=== PATIENT | female | born 1960 | race Caucasian/White ===

== ENCOUNTER 2017-10-04 21:00 | Emergency (ER) | payer OTHER ==
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
[2017-10-04 21:35] VITALS: BP 133/94
== END 2017-10-04 21:31 | disposition home or self-care (01) ==
DX: L29.9 Pruritus, unspecified (principal); W57.XXXA Bitten or stung by nonvenomous insect and other nonvenomous arthropods, initial encounter; Y99.8 Other external cause status

== ENCOUNTER 2018-05-05 13:29 | Emergency (ER) | payer OTHER, MEDICAID ==
[2018-05-05 13:37] VITALS: BP 118/64
--- NOTE | 2018-05-05 13:49 | EDPHY ---
H & P Stated Complaint: bilateral hip pain Time Seen by Provider: 05/05/18 13:49 - Personal History Current Tetanus/Diphtheria Vaccine: Unsure Current Tetanus Diphtheria and Acellular Pertussis (TDAP): Unsure - Medical/Surgical History Hx Asthma: No Hx Chronic Respiratory Disease: No Hx Diabetes: No Hx Cardiac Disease: No Hx Renal Disease: No Hx Cirrhosis: No Hx Alcoholism: No Hx HIV/AIDS: No Hx Splenectomy or Spleen Trauma: No Other PMH: PMH: fibromyalgia, many ortho issues, chronic pain. - Social History Smoking Status: Light smoker Constitutional: Initial Vital Signs Temperature (C) 36.5 C 05/05/18 13:30 Heart Rate 78 05/05/18 13:30 Respiratory Rate 18 05/05/18 13:30 Blood Pressure 118/64 05/05/18 13:30 O2 Sat (%) 96 05/05/18 13:30 O2 Delivery Mode Room Air Allergies/Adverse Reactions: morphine Allergy (Verified 10/04/17 21:09) peach Allergy (Verified 10/04/17 21:09) Home Medications: Medication Instructions Recorded Gabapentin 05/05/18 Medical Decision Making - Diagnostics Imaging: I viewed and interpreted images myself ED Course/Re-evaluation: CHIEF COMPLAINT: Right hip pain HISTORY OF PRESENT ILLNESS: The patient is a 58 y/o female with a history of chronic pain and bilateral hip replacements complaining of right hip and groin pain that began while walking today. She has been told her right hip was "wearing out." She is unable to give me a clear answer if she is able to walk or not, but she has been able to commute by bus and apparently walk into the ED. No weakness, paresthesias, urinary symptoms, recent trauma, or other complaints. REVIEW OF SYSTEMS: A comprehensive 10 system review of systems is otherwise negative aside from elements mentioned in the history of present illness and medical decision making. PHYSICAL EXAM: HR, BP, O2 Sat, RR. Temp noted General Appearance: Alert, well hydrated, appropriate, and non-toxic appearing. Head: Atraumatic without scalp tenderness or obvious injury Eyes: Pupils equal, round, reactive to light and accommodation, EOMI, no trauma , no injection. Nose: Atraumatic, no rhinorrhea, clear. Throat: Mucus membranes moist. Neck: Supple, nontender, no lymphadenopathy. Respiratory: No distress. Cardiovascular: Good capillary refill all extremities. Musculoskeletal: Normal active ROM of all extremities, atraumatic. Neurological: Alert, appropriate, and interactive. The patient has non-focal cranial nerves, motor, sensory, and cerebellar exam. Skin: No rashes, good turgor, no nodules on palpation. Past medical history: fibromyalgia, ortho issues, chronic pain Past surgical history: Right hip replacement 2010, left hip replacement 2011 - Dr. Hdz Family history: Noncontributory Social history: Staying at [facility]. Daughter in [place]. DIAGNOSTICS/PROCEDURES/CRITICAL CARE TIME: Right hip x-ray: nothing acute DIFFERENTIAL DIAGNOSIS: The differential diagnosis for the patient's symptoms included but was not limited to arthritis, prosthetic hip defect, fracture, ligamentous injury, contusion, muscular strain. MEDICAL DECISION MAKING: This is a 58 y/o female with a history of bilateral hip replacements who presents with right hip pain that worsened while walking today. Exam is unremarkable. Plan for hip x-ray for evaluation. 30mL PO Maalox ordered at patient's request for an antacid. X-ray is unremarkable. Patient will be discharged home with referral to her surgeon for follow up. Standard care instructions and return precautions discussed. She is comfortable with this plan. - Data Points Medications Given: Discontinued Medications Al Hydroxide/Mg Hydroxide (Maalox Susp) 30 ml PO EDNOW ONE Stop: 05/05/18 13:55 Last Admin: 05/05/18 14:15 Dose: 30 ml Departure - Departure Disposition: Home, Routine, Self-Care Clinical Impression: Right hip pain Condition: Good Instructions: Hip Pain (ED) Additional Instructions: Follow up with your orthopedist in the next week. Use ibuprofen and Tylenol as directed on the packaging as needed for pain over the next few days. Return for worsening of condition. Referrals: Niko Hdz [Other] - As per Instructions Report Scribed for: Lj Boothe Report Scribed by: Nazanin Nathan Date of Report: 05/05/18 Time of Report: 14:01
[2018-05-05] MEDS ORDERED: MAG HYDROX/AL HYDROX/SIMETH 30 ML UDCUP PO ONE (13:54)
== END 2018-05-05 14:28 | disposition home or self-care (01) ==
DX: M25.551 Pain in right hip (principal); G89.29 Other chronic pain; M79.7 Fibromyalgia

== ENCOUNTER 2018-05-30 21:01 | Emergency (ER) | payer OTHER, MEDICAID ==
[2018-05-30 21:14] VITALS: BP 118/96
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
[2018-05-30] MEDS: predniSONE 20 MG TAB PO ONE ×2 (21:46→21:52)
== END 2018-05-30 22:00 | disposition home or self-care (01) ==
LOC: EDUNIT#
DX: M54.42 Lumbago with sciatica, left side (principal); G89.29 Other chronic pain; Z96.643 Presence of artificial hip joint, bilateral; Z59.0 Homelessness
CPT/HCPCS: 99283; J7512

== ENCOUNTER 2018-08-26 14:57 | Emergency (ER) | payer OTHER, MEDICAID | END 2018-08-26 17:00 | disposition home or self-care (01) ==

== ENCOUNTER 2018-09-07 08:15 | Emergency (ER) | payer OTHER, MEDICAID | END 2018-09-07 08:50 | disposition home or self-care (01) ==